=== PATIENT | male | born 1990 | race Caucasian/White ===

== ENCOUNTER 2019-09-10 07:58 | Emergency (ER) | payer SELFPAY ==
[~2019-09-10] VITALS: Ht 190.5 cm; Wt 86.4 kg
[2019-09-10 08:12] VITALS: BP 120/79
== END 2019-09-10 08:28 | disposition left against medical advice (07) ==
LOC: EMS 08:03
DX: R55 Syncope and collapse (principal); R42 Dizziness and giddiness; F17.200 Nicotine dependence, unspecified, uncomplicated
CPT/HCPCS: 93005